=== PATIENT | female | born 1985 | race Two or more races ===

== ENCOUNTER 2017-12-19 00:42 | Inpatient (IN) | payer OTHER ==
[2017-12-19] MEDS ORDERED: ONDANSETRON 4 MG/2 ML VIAL ONE (02:00)
[2017-12-19] MEDS ORDERED: ONDANSETRON 4 MG/2 ML VIAL IVP PRN (03:06)
--- NOTE | 2017-12-19 03:11 | GHP ---
[f rep st] HISTORY AND PHYSICAL DATE OF ADMISSION: 12/19/2017 The patient is a 32-year-old, 1, para 0, with an EDC of 12/22/2016, who comes in with complaint of rupture of membranes at midnight on 12/19/2016 and labor shortly after at 12:30. Positive rupture of membranes was identified, clear fluid, rich every 2-3 minutes. The patient has been seen routinely since 7 weeks and 6 days with [facility]. PAST MEDICAL HISTORY: Patient has a history of asthma, history of reflux. Patient also has a history of constipation. November to January of 2017 previous pityriasis rosacea. 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 Patient estranged from father. GYNECOLOGICAL HISTORY: Menarche at age 12. Five day cycle. Positive test on 04/12/2017. LMP was 03/03/2017. Previous OCP use. Paps on 03/01/2017 was within normal limits. Previous yeast infection that was treated with Diflucan on 03/01/2017. ALLERGIES: The patient is not allergic to any medications. MEDICATIONS: Patient is taking a gummy and using albuterol p.r.n., previously taking Unisom p.r.n. SOCIAL HISTORY: Patient is to [place]. Denies tobacco use. Denies drug use. FAMILY HISTORY: Noncontributory. Traveled to [place] in 01/23/2017 The patient was on a cruise. PHYSICAL EXAMINATION: GENERAL: Patient is awake, alert, oriented x3. LUNGS: Clear bilaterally. ABDOMEN: Bowel sounds are positive in all 4 quadrants. EXTREMITIES: DTRs are 1+ bilaterally. Homans sign is negative. LABORATORY DATA: Patient is B positive, antibody negative. RPR is nonreactive. Rubella is immune. Hepatitis is negative. HIV is negative. TSH is within normal limits. Parvo is immune. Pap test was negative. Gonorrhea and chlamydia are negative. Quad screen was negative. No other DNA testing was completed by the patient. 1 hour GTT was within normal limits at 28 weeks. The patient was anemic at that time at 35. PLAN OF CARE: 1. Patient is GBS negative. 2. Patient requests an epidural, however, unable to give an epidural at this time because of an emergency on the labor deck. The patient has chosen to get into the tub for some pain relief. Consult physician Dr. Robin as needed for plan of care. /[id number]/MODL MTDD
[2017-12-19] MEDS ORDERED: LR 1,000 ML IV PRN (03:18)
[2017-12-19] MEDS ORDERED: IBUPROFEN 600 MG TAB PO PRN (03:18)
[2017-12-19] MEDS ORDERED: EPSOM SALT 454 GM TP PRN (03:18)
[2017-12-19] MEDS ORDERED: OXYTOCIN 20 UNIT in LR 1,000 ML IV PRN (03:18)
[2017-12-19] MEDS ORDERED: AMMONIA AROMATIC 1 EACH AMP IH PRN (03:18)
[2017-12-19] MEDS ORDERED: MISOPROSTOL 200 MCG TAB PO PRN (03:18)
[2017-12-19] MEDS ORDERED: LIDOCAINE 1% 300 MG/30 ML SDV SC PRN (03:18)
[2017-12-19] MEDS ORDERED: TERBUTALINE SULFATE 1 MG/ML VIAL IV PRN (03:18)
[2017-12-19] MEDS ORDERED: OLIVE OIL 118 ML BTL MISC PRN (03:18)
[2017-12-19] MEDS ORDERED: LIDOCAINE 1% 300 MG/30 ML SDV ONE (03:33)
[2017-12-19] MEDS ORDERED: AMMONIA AROMATIC 1 EACH AMP IH ONE (03:33)
[2017-12-19] MEDS ORDERED: OLIVE OIL 118 ML BTL ONE (03:33)
[2017-12-19] MEDS ORDERED: OXYTOCIN 10 UNIT/ML VIAL ONE (03:34)
[2017-12-19 04:31] LABS: PLATELET COUNT 146 10^3/uL (150-400)
[2017-12-19] MEDS ORDERED: fentaNYL 200 MCG, BUPIVACAINE 0.5% 20 ML in NS 100 ML EP SCH (05:30)
--- NOTE | 2017-12-19 05:57 | OBPROG ---
Labor Progress Note Assessment/Plan: Assessment: cat 2 fhr epidural placed for pain relief 9/100/+1 station cephalic transition previously in the tub for pain relief Plan:epidural placed for pain relief 12/19/17 05:54 Subjective/Intrapartum Course: 12/19/17 05:53 Epidural placed beginning to feel better after epidural placement Objective: 12/19/17 01:30 Patient ABO/Rh B POSITIVE 12/19/17 01:30 - SVE Dilation (cm): 9 Effacement (%): 100 Station: +1 Membranes: SROM Amniotic Fluid Color: Clear - Contraction Pattern Assessment Current Contraction Pattern: Regular - FHR Assessment Burrell FHR (bpm): 110 FHR Pattern Variability: Moderate FHR Category: 2 - AP Antepartum Course: asthma no medical history 12/19/17 05:57 Oxytocin Orders Assessment - Pre-Induction/Augmentation Assessment Gestational Age: 39 week(s) and 4 day(s) ICD10 Worksheet Patient Problems: Problems Problem Status Onset spontaneous labor and srom Acute
[2017-12-19] MEDS ORDERED: NALOXONE HCL 0.4 MG/ML INJ IVP PRN (06:12)
[2017-12-19] MEDS ORDERED: PHENYLEPHRINE HCL 100 MCG/ML SYR IVP PRN (06:12)
--- NOTE | 2017-12-19 06:12 | PREANESOB ---
Obstetric Pre-Anesthesia Info - General Info Proposed Procedure: vaginal delivery NPO Start Time: 00:00 (solids last at lunch yesterday) : 1 Para: 0 CONCHA: 12/22/17 Gestational Age: 39 week(s) and 4 day(s) - Info Status: Full Term Monitors: External FHR Pattern: Reassuring - Labor Status Cervical Dilation per last OB SVE: 9 Station per last OB SVE: +1 Amniotic Fluid Color: Clear PIH: No Labor Epidural: Yes Anesthesia ROS: No URI/fever. H/o RAD, but no other health problems. Allergies/Adverse Reactions: Allergy/AdvReac Type Severity Reaction Status Date / Time No Known Allergies Allergy Unverified 12/19/17 03:15 Home Medications: Medication Instructions Recorded Ferrous Sulf 325 MG (*) 1 PO DAILY 12/19/17 1 tab PO DAILY 12/19/17 Proair Hfa PRN 12/19/17 Visit Medications: Generic Name Dose Route Start Last Admin Trade Name Freq PRN Reason Stop Dose Admin Ammonia (Aromatic Spirit) 1 each 12/19/17 03:18 Ammonia Aromatic IH 12/29/17 03:17 ONCE PRN Fainting Lactated Ringer's 1,000 mls @ 0 mls/hr 12/19/17 03:18 Lr IV 12/20/17 03:17 PRN PRN SEE PROTOCOL CONDITIONS Protocol Per Protocol Oxytocin 20 unit/ Lactated 1,002 mls @ 150 mls/hr 12/19/17 03:18 Ringer's IV PRN PRN Post- bleeding Fentanyl 200 mcg/ Bupivacaine 100 mls @ 0 mls/hr 12/19/17 05:30 HCl 20 ml/ Sodium Chloride EP 12/29/17 05:29 CONT PIERO Protocol As Directed Ibuprofen 600 mg 12/19/17 03:18 Motrin PO 06/17/18 03:17 Q6HRS PRN post , inflammation Lidocaine HCl 300 mg 12/19/17 03:18 Lidocaine Hcl 1% SC 06/17/18 03:17 ONCE PRN episiotomy Magnesium Sulfate 454 gm 12/19/17 03:18 Epsom Salt TP 06/17/18 03:17 Q1H PRN perineal discomfort Misoprostol 800 - 1,000 mcg 12/19/17 03:18 Cytotec PO ONCE PRN Vaginal Atony/Bleeding [place] Oil 118 ml 02/13/18 03:18 Sweet Oil MISC 06/17/18 03:17 ONCE PRN perineal massage Ondansetron HCl 4 mg 12/19/17 03:06 Zofran IVP 06/17/18 03:05 Q6HRS PRN Nausea/Vomiting, Can't Take PO Terbutaline Sulfate 0.25 mg 12/19/17 03:18 Brethine IV 06/17/18 03:17 ONCE PRN Tachysystole Discontinued Medications Generic Name Dose Route Start Last Admin Trade Name Jianq PRN Reason Stop Dose Admin Ammonia (Aromatic Spirit) Confirm 12/19/17 03:33 Ammonia Aromatic Administered 12/19/17 03:34 Dose 1 each IH .STK-MED ONE Lidocaine HCl Confirm 12/19/17 03:33 Lidocaine Hcl 1% Administered 12/19/17 03:34 Dose 300 mg .ROUTE .STK-MED ONE [place] Oil Confirm 12/19/17 03:33 Sweet Oil Administered 12/19/17 03:34 Dose 118 ml .ROUTE .STK-MED ONE Ondansetron HCl Confirm 12/19/17 02:00 Zofran Administered 12/19/17 02:01 Dose 4 mg .ROUTE .STK-MED ONE Oxytocin Confirm 12/19/17 03:34 Pitocin Administered 12/19/17 03:35 Dose 40 unit .ROUTE .STK-MED ONE - Anesthesia History Response to Local Anesthetics: Normal Anesthesia & Operative History: No Prior Problems Family Anesthesia History: Not Applicable - Vital Signs Latest Vital Signs (Nursing): See nursing notes for VS. Height/Weight (Nursing): Height 160.02 cm Weight 72.575 kg - Focused Exam Mallampati Score: Class 2 Pulmonary: clear to auscultation Cardiovascular: tachycardia Labs: 12/19/17 01:30 Patient ABO/Rh B POSITIVE 12/19/17 01:30 - Plan Consent Signed and on Chart: Yes Patient/Guardian Understands and Agrees to Plan: Yes Urgent/Emergent Case: Attila katz completed preop but documented later for safe timely pt care
[2017-12-19] MEDS ORDERED: LR 500 ML IV SCH (06:30)
[2017-12-19] MEDS ORDERED: fentaNYL 2MCG/ML/BUP 0.1% RTU 100 ML EP SCH (06:30)
[2017-12-19] MEDS ORDERED: ACETAMINOPHEN 325 MG TAB PO PRN (07:48)
[2017-12-19] MEDS ORDERED: SIMETHICONE 80 MG TAB CHEW PO PRN (07:48)
[2017-12-19] MEDS ORDERED: HYDROCORTISONE 0.5% CREAM TP PRN (07:48)
[2017-12-19] MEDS ORDERED: HYDROCODONE/APAP 5/325 TAB PO PRN (07:48)
[2017-12-19] MEDS ORDERED: DOCUSATE SODIUM 100 MG CAP PO PRN (07:48)
--- NOTE | 2017-12-19 08:01 | OBDEL ---
Info Type: Vaginal Presentation at Delivery: Vertex L&D Analgesia/Anesthesia Type: Epidural GBS+: No - Hospital Course Intrapartum: 12/19/17 05:53 Epidural placed beginning to feel better after epidural placement Indications for Delivery: Spontaneous Labor, SROM Vaginal Delivery - Delivery Provider Delivery Physician/CNM: Hien Martin Proctoring Provider: Ethel Robin - Labor and Delivery Onset of Contractions Date: 12/18/17 Onset of Contractions Time: 22:45 Onset of Contractions Type: Spontaneous Rupture of Membranes Date: 12/19/17 Rupture of Membranes Time: 22:30 Rupture of Membranes Type: Spontaneous Amniotic Fluid Color: Clear Dilation Complete Date: 12/19/17 Dilation Complete Time: 06:15 Placenta Delivery Date: 12/19/17 Placenta Delivery Time: 07:40 Total Hours of Labor: 8 Laceration: 2nd Degree Repair: 3-0, Vicryl Vaginal Sponge Count Correct: Yes Vaginal Needle Count Correct: Yes Vaginal Sweep Performed: No EBL: 350 Delivery Events: Nuchal Cord - Medications Labor Augmentation/Induction Methods Used: None [place] Data CONCHA: 12/22/17 Gestational Age: 39 week(s) and 4 day(s) Burrell Delivery Date: 12/19/17 Delivery Time: 07:21 Sex of : Male Score (1 Min): 9 Score (5 Min): 10 ICD10 Worksheet Patient Problems: Problems Problem Status Onset Vaginal delivery Acute spontaneous labor and srom Acute - ICD10 Problem Qualifiers (2) Vaginal delivery
[2017-12-19] MEDS: IBUPROFEN 600 MG TAB PO PRN (16:53)
[2017-12-20] MEDS: IBUPROFEN 600 MG TAB PO PRN ×3 (01:11→21:06)
[2017-12-20] MEDS: POLYETHYLENE GLYCOL 3350 17 GM PKT PO PRN (10:24)
--- NOTE | 2017-12-20 15:40 | OBPP ---
Progress Note Assessment/Plan: Assessment: PPD 1 s/p Plan: routine care 12/20/17 15:37 Subjective/ Course: 12/20/17 15:38 Pt doing well. States bld is pretty light. mod cramps controlled with ibu. baby is working on latching and pt using gregorio. urinating fine. disc post- wellness visit. Pt will take 12 wks off work. Objective: 12/19/17 01:30 Patient ABO/Rh B POSITIVE 12/19/17 01:30 Temp Pulse Resp BP Pulse Ox 36.2 C 76 18 91/62 L 94 12/20/17 09:03 12/20/17 09:03 12/20/17 09:03 12/20/17 09:03 12/19/17 20:00 Uterine Position/Fundal Height: Umbilicus -1 Uterine Tone: Firm Physical Exam - Physical Exam Abdomen: non-tender, soft Extremities: non-tender, pedal edema (minimal) Skin: normal color, warm/dry Neuro/Psych: alert, normal mood/affect
[2017-12-21 09:29] VITALS: BP 122/84; PULSE 89; RESP 17; TEMP 98.5; O2SAT 95
[2017-12-21] MEDS: POLYETHYLENE GLYCOL 3350 17 GM PKT PO PRN (11:28)
--- NOTE | 2017-12-21 14:17 | OBGCSDC ---
General Delivery Information - General Info : 1 Para: 1 Abortions: 0 Type: Vaginal L&D Analgesia/Anesthesia Type: Epidural Admission Date: 12/19/17 Labs: Patient ABO/Rh B POSITIVE 12/19/17 01:30 Hct 38.6 % (38.0-47.0) 12/19/17 01:30 - Hospital Course Antepartum: asthma no medical history 12/19/17 05:57 Intrapartum: 12/19/17 05:53 Epidural placed beginning to feel better after epidural placement : 12/20/17 15:38 Pt doing well. States bld is pretty light. mod cramps controlled with ibu. baby is working on latching and pt using gregorio. urinating fine. disc post- wellness visit. Pt will take 12 wks off work. 12/21/17 17:56 S) Pt doing well, reports min pain and bleeding. she is ambulating and voiding without difficulty. She is . She desires discharge home today. O) VSS, afebrile constitutional: WNBF, A&Ox3 HEENT: normocephalic, atraumatic, supple Heart: RRR, No murmur Chest: CTA-B Abdomen: Soft, nontender Uterus: Firm at U-2 Lochia: Minimal rubra Perineum: Intact, healing well Extremities: Trace edema, and negative Jian's sign Neuro: Grossly normal A) 32 year-old S/P PPD#2 P) Discharge home today Continue Pelvic rest x6wks Discussed danger signs (infection, preeclampsia, depression, heavy bleeding, etc) RTO in 4/6 weeks Vaginal - Delivery Provider Delivery Physician/CNM: Hien Martin - Diagnosis Labor: Spontaneous Rupture of Membranes Type: Spontaneous Amniotic Fluid Color: Clear Laceration: 2nd Degree Repair: 3-0, Vicryl Delivery Events: Nuchal Cord - Delivery EBL: 350 [place] Data CONCHA: 12/22/17 Gestational Age: 39 week(s) and 6 day(s) Burrell Delivery Date: 12/19/17 Delivery Time: 07:21 Sex of Infant: Male Score (1 Min): 9 Score (5 Min): 10 Discharge Information - Discharge Information Condition: Good Instruction/Follow Up: Four Weeks, Six Weeks
== END 2017-12-21 14:50 | disposition home or self-care (01) | DRG 775 ==
LOC: OBSVTOIN 00:42 → FLD 00:42 → FOB 11:00
PROVIDERS: ADMIT Advanced Practice Midwife; ATTEND Obstetrics & Gynecology
DX: O70.1 Second degree perineal laceration during delivery (principal); O69.81X0 Labor and delivery complicated by cord around neck, without compression, not applicable or unspecified; Z3A.39 39 weeks gestation of pregnancy; Z37.0 Single live birth
CPT/HCPCS: J2405; J2590; J3010